=== PATIENT | female | born 1980 | race Caucasian/White ===

== ENCOUNTER 2023-01-18 09:44 | Emergency (ER) | payer OTHER, SELFPAY ==
--- NOTE | 2023-01-18 09:48 | ED.URI ---
HPI - URI/Sore Throat General Chief Complaint: Upper Respiratory Infection Stated Complaint: SINUS CONGESTION Time Seen by Provider: 01/18/23 09:48 Source: patient Mode of arrival: ambulatory Limitations: no limitations History of Present Illness HPI Narrative: Patient is a 42-year-old male who presents with 2 weeks sinus congestion nose, runny nose, cough. Patient has tried Sudafed, Benadryl, Mucinex with moderate relief. Patient states her symptoms started to resolve and she stops taking medicine, followed by recurrence of symptoms. Patient does not take a daily allergy medicine. Patient denies any fever, chills, ear pain, sore throat. States she is still constantly blowing her nose. Related Data Home Medications Medication Instructions Recorded Confirmed acetazolamide 250 mg tablet 250 mg PO DAILY 01/18/23 01/18/23 atorvastatin 20 mg tablet 20 mg PO DAILY 01/18/23 01/18/23 calcium cit 250 mg-ergocalciferol 1 tablet PO DAILY 01/18/23 01/18/23 (vit D2) 2.5 mcg (100 unit) tablet ferrous sulfate 325 mg (65 mg 325 mg PO DAILY 01/18/23 01/18/23 iron) tablet (Iron (ferrous sulfate)) lisinopril 20 mg tablet 20 mg PO DAILY 01/18/23 01/18/23 metformin 500 mg tablet,extended 500 mg PO DAILY 01/18/23 01/18/23 release 24 hr pantoprazole 20 mg tablet,delayed 20 mg PO DAILY 01/18/23 01/18/23 release potassium citrate 10 mEq (1,080 20 meq PO BID 01/18/23 01/18/23 mg) tablet,extended release Allergies Allergy/AdvReac Type Severity Reaction Status Date / Time amoxicillin [From Amoxil] Allergy Diarrhea Verified 01/18/23 09:52 Penicillins Allergy Diarrhea Verified 01/18/23 09:52 Review of Systems Review of Systems: All systems reviewed & are unremarkable except as noted in HPI and below Constitutional: Constitutional: Denies body ache(s), Denies chills, Denies fatigue, Denies fever(s), Denies headache(s), Denies malaise and Denies weakness Eyes: Eyes: Denies blurry vision, Denies itchy eyes and Denies loss of vision ENT: Denies otalgia, Denies headache(s), Reports nasal congestion, Reports nasal discharge, Denies sinus pain and Denies sore throat Cardiovascular: Cardiovascular: Denies chest pain, Denies irregular heart rhythm and Denies dyspnea Respiratory: Respiratory: Reports cough and Denies dyspnea Gastrointestinal: Gastrointestinal: Denies abdominal pain, Denies diarrhea, Denies nausea and Denies vomiting Musculoskeletal: Musculoskeletal: Denies back pain, Denies myalgias and Denies arthralgias Integumentary/Breasts: Skin/Breast: Denies pruritus and Denies rash Neurologic: Denies headache(s), Denies loss of vision and Denies weakness Psychiatric: Psychiatric: Reports no additional psychiatric complaints Endocrine: Endocrine: Denies fatigue Allergic/Immunologic: Allergic/Immunologic: Denies itchy eyes PMFSH Comments At time of signature, agree with nursing past medical, surgical, social and family history. There is no relevant family history pertinent to the presenting complaint. Exam Const: General: cooperative, healthy appearing, comfortable, no acute distress and well nourished Nutritional Appearance: well nourished Orientation/consciousness: patient oriented x3 Limitations: no limitations HENMT: Head: normal to inspection, normocephalic and atraumatic Ears: hearing grossly normal bilaterally, external ears normal, TM's normal bilaterally, EAC's normal and no periauricular adenopathy Face/Nose/Sinus: Normal external nose present, Abnormal mucous membranes and turbinates present erythematous bilateral and diffuse, normal facial exam, sinuses nontender and face symmetric Face and sinus: normal facial exam, sinuses nontender and face symmetric Mouth: Yes Normal oral and palatal mucosa present, Yes lip normal, Yes tongue normal, Yes Normal salivary glands and ducts present, Yes oropharynx normal and Yes moist mucous membranes Teeth and gingiva: dentition normal Throat: posterior oropharynx normal,
[2023-01-18 09:55] VITALS: BP 132/87; PULSE 75; RESP 16; TEMP 36.6; O2SAT 100
[2023-01-18 09:56] VITALS: BP 132/87; PULSE 75; RESP 16; TEMP 36.6; O2SAT 100
== END 2023-01-18 10:26 | disposition home or self-care (01) ==
PROVIDERS: Emergency Provider Nurse Practitioner Family; PCP Physician Assistant
DX: J01.90 Acute sinusitis, unspecified (principal)
CPT/HCPCS: 99213; G0463

== ENCOUNTER 2023-08-04 10:05 | Emergency (ER) | payer OTHER, SELFPAY ==
--- NOTE | ~2023-08-04 | XR_ITS ---
EXAMINATION: XR chest 2V DATE: 08/04/2023 11:00 INDICATION: Shortness of breath and cough, history of recent COVID 19 TECHNIQUE: PA and lateral views of the chest are obtained. COMPARISON: None available FINDINGS: The lungs are free of acute opacities. No pleural effusion or pneumothorax. The cardiomedia stinal silhouette is normal. There is mild thoracic spondylosis. IMPRESSION: 1. No acute cardiopulmonary abnormality. Reviewed, dictated and finalized at location A. [employer]
[2023-08-04 10:39] VITALS: BP 135/90; PULSE 112; RESP 16; TEMP 36.8; O2SAT 98
--- NOTE | 2023-08-04 10:40 | ED.URI ---
HPI - URI/Sore Throat General Chief Complaint: Upper Respiratory Infection Stated Complaint: Cough;Chest pain Time Seen by Provider: 08/04/23 10:40 Source: patient, RN notes reviewed and old records reviewed Mode of arrival: ambulatory Limitations: no limitations History of Present Illness HPI Narrative: 43-year-old female presents to [facility] with complaints of productive cough, shortness of breath and chest congestion, patient states was diagnosed with COVID 2 weeks ago, and states cough is no better. A [id number] medications with no relief denies fevers. Related Data Home Medications Medication Instructions Recorded Confirmed acetazolamide 250 mg tablet 250 mg PO DAILY 01/18/23 08/04/23 atorvastatin 20 mg tablet 20 mg PO DAILY 01/18/23 08/04/23 calcium cit 250 mg-ergocalciferol 1 tablet PO DAILY 01/18/23 08/04/23 (vit D2) 2.5 mcg (100 unit) tablet ferrous sulfate 325 mg (65 mg 325 mg PO DAILY 01/18/23 08/04/23 iron) tablet (Iron (ferrous sulfate)) lisinopril 20 mg tablet 20 mg PO DAILY 01/18/23 08/04/23 metformin 500 mg tablet,extended 500 mg PO DAILY 01/18/23 08/04/23 release 24 hr pantoprazole 20 mg tablet,delayed 20 mg PO DAILY 01/18/23 08/04/23 release potassium citrate 10 mEq (1,080 20 meq PO BID 01/18/23 08/04/23 mg) tablet,extended release Allergies Allergy/AdvReac Type Severity Reaction Status Date / Time amoxicillin [From Amoxil] Allergy Diarrhea Verified 08/04/23 10:29 Penicillins Allergy Diarrhea Verified 08/04/23 10:29 Review of Systems Constitutional: Constitutional: Reports no additional constitutional complaints Eyes: Eyes: Reports no additional eye complaints ENT: Reports system reviewed and no additional complaints, except as documented Cardiovascular: Cardiovascular: Reports no additional cardiovascular complaints Respiratory: Respiratory: Reports as per HPI, Reports chest congestion, Reports cough and Reports dyspnea Neurologic: Reports system reviewed and no additional complaints, except as documented PMFSH Comments At the time of my signature, I reviewed and agree with the nursing past medical, surgical, social, and family history. There is no relevant family history pertinent to the patient complaint. Exam Const: General: cooperative, healthy appearing, no acute distress and well nourished Nutritional Appearance: well nourished Orientation/consciousness: patient oriented x3 Limitations: no limitations HENMT: Head: normal to inspection and normocephalic Ears: external ears normal, TM's normal bilaterally, mastoids normal and Abnormal EAC present Face/Nose/Sinus: normal facial exam Face and sinus: normal facial exam Mouth: Yes Normal oral and palatal mucosa present, Yes oropharynx normal and Yes moist mucous membranes Throat: posterior oropharynx normal, tonsils normal, uvula midline and no uvular edema Eyes: General: appearance normal, both eyes and all related structures Sclera: sclerae normal Pupils: Equal, round and reactive pupils present Resp: Effort & Inspection: normal respiratory effort, able to speak in complete sentences, no audible wheezes, no cough, no respiratory distress and no retractions Auscultation: no crackles, no rales, rhonchi and no wheezes Cardio: Rate: regular rate Rhythm: regular rhythm Skin: General skin exam: normal color and no rashes or lesions noted Neuro: General: patient oriented x3 Cranial nerves: Yes Equal, round and reactive pupils present Psych: Appearance: grossly normal Course Course Emergency Course: Some parts of this dictation were generated by voice recognition software and may contain typographical and/or grammatical inaccuracies. Level of Care: Express Care Visit Vital Signs Vital signs: Vital Signs Temperature 98.3 F 08/04/23 10:39 Pulse Rate 112 H 08/04/23 10:39 Respiratory Rate 16 08/04/23 10:39 Blood Pressure 135/90 08/04/23 10:39 Pulse Oximetry 98 08/04/23 10:39 T
== END 2023-08-04 11:48 | disposition home or self-care (01) ==
PROVIDERS: Emergency Provider Registered Nurse
DX: B34.9 Viral infection, unspecified (principal); J06.9 Acute upper respiratory infection, unspecified; Z86.16 Personal history of COVID-19
CPT/HCPCS: 71046; 99213; G0463